=== PATIENT | female | born 1940 | race Caucasian/White ===

== ENCOUNTER 2016-10-29 11:51 | Emergency (ER) | payer MEDICARE, BC ==
[2016-10-29 12:03] VITALS: RESP 20; O2SAT 96
[2016-10-29 12:35] LABS: APPEARANCE,URINE Clear; BILIRUBIN,URINE NEGATIVE (NEGATIVE); COLOR,URINE Yellow; GLUCOSE, URINE (UA) NEGATIVE (NEGATIVE); KETONES,URINE NEGATIVE (NEGATIVE); LEUKOCYTE ESTERASE ,URINE 1+ (NEGATIVE); NITRATE,URINE NEGATIVE (NEGATIVE); OCCULT BLOOD,URINE NEGATIVE (NEG-TRACE); PH,URINE 5.5; UROBILINOGEN,URINE 0.2 (0.2-1.0 EU)
[2016-10-29 12:44] LABS: RBC,URINE 0-1 (0-3AV/HPF)
[2016-10-29 13:38] VITALS: BP 113/71; PULSE 66; TEMP 98.9
[2016-10-29] MEDS ORDERED: LIDOCAINE BUFFERED 1% 50 ML SOL SC ONE (14:12)
[2016-10-29] MEDS ORDERED: TDAP VACCINE 0.5 ML SUS IM ONE (14:12)
== END 2016-10-29 13:06 | disposition home or self-care (01) | DRG 392 ==
LOC: ED 11:51
DX: K58.0 Irritable bowel syndrome with diarrhea (principal)
CPT/HCPCS: 81001; 99282

== ENCOUNTER 2018-04-12 17:07 | Emergency (ER) | payer BC, MEDICARE ==
[2018-04-12 17:35] VITALS: RESP 16; TEMP 97.4
[2018-04-12 18:48] LABS: BASOPHILS % (AUTO) 1 % (0-3); EOSINOPHILS % (AUTO) 3 % (0-9); HEMATOCRIT 40 % (35-47); LYMPHOCYTES % (AUTO) 26.6 % (10-50); MEAN CORPUSCULAR HGB CONC 32.6 gm/dl (32.0-36.0); MEAN CORPUSCULAR VOLUME 89 fL (81-99); MONOCYTES % (AUTO) 10.2 % (0-12); NEUTROPHILS % (AUTO) 58.9 % (37-80)
[2018-04-12 19:04] LABS: ALBUMIN 3.5 gm/dl (3.4-5.0); BILIRUBIN,TOTAL 0.2 mg/dl (0.2-1.0); CALCIUM 8.7 mg/dl (8.5-10.1); CARBON DIOXIDE 29.1 mEq/L (21-32); CREATININE 0.89 mg/dl (0.60-1.00); TOTAL PROTEIN 7.5 gm/dl (6.4-8.2)
[2018-04-12 19:37] VITALS: BP 178/72; PULSE 70; O2SAT 96
== END 2018-04-12 19:30 | disposition home or self-care (01) | DRG 880 ==
LOC: ED 17:07
DX: F41.0 Panic disorder [episodic paroxysmal anxiety] (principal); R40.2362 Coma scale, best motor response, obeys commands, at arrival to emergency department; R40.2142 Coma scale, eyes open, spontaneous, at arrival to emergency department; R40.2252 Coma scale, best verbal response, oriented, at arrival to emergency department
CPT/HCPCS: 36415; 80053; 85025; 99282